=== PATIENT | female | born 2000 | race Caucasian/White ===

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

== ENCOUNTER 2021-06-19 10:10 | Outpatient (REF) | payer BC, SELFPAY ==
--- NOTE | 2021-06-19 09:45 | PAPFT_PTH ---
PATIENT: Iman Byers LOC: [facility] U#:[id number] AGE/SX: 20/F ROOM: RE06/19/[address]: Nancy Vance : 2000 BED: DIS: 06/19/2021 SPEC #: [id number] RECD: 06/19/21 12:42 STATUS: LISA REQ #: [id number] MATRA: 06/19/21 09:[address]: Nancy Vance DEPT: [facility] Cytology RECD BY: Bri Curiel ENTERED: 06/19/21 12:42 SP TYPE: PAPFT OT DR: Mary Local Tissues: 1 - CX/ENDOCX FOR PAP SMEARS Procedures: PAP THIN PREP/[facility] Screening Comments: [id number]
[2021-06-20 15:01] LABS: Chlamydia Result Negative (Negative); GC Result Negative (Negative)
== END 2021-06-19 10:11 | disposition home or self-care (01) ==
LOC: LBN 10:10
PROVIDERS: Visit Provider Obstetrics & Gynecology Gynecology
DX: Z11.3 Encounter for screening for infections with a predominantly sexual mode of transmission (principal); Z97.5 Presence of (intrauterine) contraceptive device; Z12.4 Encounter for screening for malignant neoplasm of cervix
CPT/HCPCS: 87491; 87591; 88142